=== PATIENT | male | born 1945 | race Caucasian/White ===

== ENCOUNTER 2019-02-09 23:02 | Inpatient (IN) | payer MEDICARE, MEDICAID ==
[~2019-02-09] VITALS: Ht 180.3 cm; Wt 81.6 kg
[~2019-02-09 23:02] MED LIST: NO HOME MEDS
[2019-02-09] MEDS ORDERED: normal saline 1000ml 1,000 ML IV ONE (23:44)
[2019-02-09] MEDS ORDERED: morphine 4 MG/ML inj SYRINge IV ONE (23:45)
[2019-02-09] MEDS ORDERED: ondansetron/PF 4mg/2ml inj IV ONE (23:45)
[2019-02-09] MEDS ORDERED: normal saline 1000ML IV soln IVB ONE (23:45)
--- NOTE | 2019-02-09 23:56 | NUR ---
pt went to radiology
[2019-02-10] VITALS (18 sets, daily range): BP systolic 104–139; BP diastolic 44–75
[2019-02-10 00:35] LABS: BASOPHILS % (AUTO) 0.1 % (0-1); EOSINOPHILS % (AUTO) 0 % (0-6); HEMATOCRIT 38.5 % (42.0-52.0); HEMOGLOBIN 13.2 g/dl (14.0-17.9); LYMPHOCYTES # (AUTO) 0.5 X10'3 (1.1-4.8); LYMPHOCYTES % (AUTO) 4.6 % (21-51); MEAN CORPUSCULAR HEMOGLOBIN 31.8 PG (27.0-31.0); MEAN CORPUSCULAR HGB CONC 34.3 g/dL (33.0-36.5); MEAN CORPUSCULAR VOLUME 92.6 FL (78-98); MEAN PLATELET VOLUME 8.1 FL (7.4-10.4); MONOCYTES # (AUTO) 0.6 X10'3 (0-0.9); MONOCYTES % (AUTO) 4.9 % (2-12); NEUTROPHILS # (AUTO) 10.7 X10'3 (1.8-7.7); NEUTROPHILS % (AUTO) 90.4 % (42-75); PLATELET COUNT 239 X10'3 (140-440); RED BLOOD COUNT 4.16 X10'6 (4.70-6.10); RED CELL DISTRIBUTION WIDTH 13.4 % (11.5-14.5); WHITE BLOOD COUNT 11.9 X10'3 (4.5-11.0)
[2019-02-10 00:42] LABS: ALANINE AMINOTRANSFERASE 20 U/L (12-78); ALBUMIN 2.8 G/DL (3.4-5.0); ALBUMIN/GLOBULIN RATIO 0.7 (1.1-1.5); ALKALINE PHOSPHATASE 75 IU/L (46-116); ANION GAP 9 (8-16); ASPARTATE AMINO TRANSFERASE 20 U/L (10-37); BILIRUBIN,TOTAL 0.8 MG/DL (0.1-1.0); BLOOD UREA NITROGEN 21 MG/DL (7-18); BUN/CREATININE RATIO 19.8 (5.4-32.0); CALCIUM 8.8 MG/DL (8.5-10.1); CHLORIDE 102 MMOL/L (99-107); CREATININE 1.06 MG/DL (0.60-1.10); GLUCOSE 118 MG/DL (70-104); SODIUM 138 MMOL/L (135-145); TOTAL PROTEIN 6.7 G/DL (6.4-8.2); eGFR 68 ML/MIN
[2019-02-10 00:43] LABS: PARTIAL THROMBOPLASTIN TIME 33 SECONDS (22-32)
--- NOTE | 2019-02-10 01:42 | NUR ---
PT ASLEEP, RR 17
[2019-02-10] MEDS ORDERED: ESCI5TAB PO (02:41)
[2019-02-10] MEDS ORDERED: MAG355OR18 PO (02:44)
[2019-02-10] MEDS ORDERED: mag hydrox/Alum hydrox/simeth 30ml oral suspension PO PRN (02:45)
[2019-02-10] MEDS ORDERED: acetaminophen 325mg tablet PO PRN (02:45)
[2019-02-10] MEDS ORDERED: ondansetron/PF 4mg/2ml inj IV PRN ×2 (02:45→07:40)
[2019-02-10] MEDS ORDERED: magnesium hydroxide 30ml (MOM) UD suspension PO PRN ×2 (02:45→06:30)
[2019-02-10] MEDS ORDERED: HYDROcodone/acetaminophen 5mg/325mg tablet PO PRN (02:45)
[2019-02-10] MEDS ORDERED: morphine 2 MG/ML inj. syringe IV PRN (02:45)
[2019-02-10] MEDS ORDERED: METO25TA6 PO (02:47)
[2019-02-10] MEDS ORDERED: SACC250C8 (02:48)
[2019-02-10] MEDS ORDERED: CARB-87 PO (02:49)
[2019-02-10] MEDS ORDERED: ONDA4TAB6 PO (02:50)
[2019-02-10] MEDS ORDERED: ACET-1008 PO (02:50)
[2019-02-10] MEDS: HYDROcodone/acetaminophen 10/325mg tab PO PRN ×3 (03:41→20:38)
[2019-02-10] MEDS: dextrose 5%-1/2 normal saline 1,000 ML IV SCH ×3 (04:32→18:38)
--- NOTE | 2019-02-10 06:12 | NUR ---
report given to yady Flores.
[2019-02-10] MEDS ORDERED: FLO0.4C PO (07:08)
[2019-02-10] MEDS ORDERED: FOLI1TAB16 PO (07:08)
[2019-02-10] MEDS ORDERED: ringers solution, lacted 1,000 ML IV SCH (07:37)
--- NOTE | 2019-02-10 07:38 | NUR ---
Patient to OR. Called [facility] they stated "patient makes own decision and his dementia fluctuates, he is more with it than not."
[2019-02-10] MEDS ORDERED: meperidine/PF 25mg/ml syringe IV PRN ×3 (07:40)
[2019-02-10] MEDS ORDERED: morphine 4 MG/ML inj SYRINge IV PRN ×2 (07:40)
[2019-02-10] MEDS ORDERED: proCHLORperazine 10 MG/2 ml inj IV PRN (07:40)
[2019-02-10] MEDS ORDERED: ceFAZolin 1GM/D5W- ADD-VANTAGE 50 ML IV ONE (07:45)
[2019-02-10] MEDS ORDERED: MIDAZolam 5mg/5ml vial ONE (07:49)
[2019-02-10] MEDS ORDERED: fentaNYL/PF 50MCG/1 ML 2ML syringe ONE (07:49)
[2019-02-10] MEDS ORDERED: vancomycin/NS 1 GM ADD-VANTAGE 250 ML IV ONE (08:05)
[2019-02-10] MEDS ORDERED: ceFAZolin 1000mg inj ONE ×2 (09:07)
--- NOTE | 2019-02-10 09:45 | NUR ---
Received from OR via ORTHO BED, accompanied by Anesthesiologist DR LORENZ and report given by Anesthesiolgist. PT PLACED ON 02 AND MONITOR, S/P RIGHT HIP HEMIARTHROPLASTY, SAB, EASILY AROUSES TO NAME CALLING,PT HAS RIGHT LATERAL HIP DRESSING CDI, GOOD PEDAL PULSES BILAT, BROWN CATH DRAINING CLEAR YELLOW, DENIES ANY PAIN OR NAUSEA WILL CONTINUE TO ASSESS.
--- NOTE | 2019-02-10 10:45 | NUR ---
Report called to receiving nurse. Transferred via ORTHO BED TO ROOM 4024B Belongings . Special Issues communicated to receiving nurse. DENIES ANY PAIN OR NAUSEA. ENCOURAGED TO CDB, PT VERBALIZED UNDERSTANDING.
[2019-02-10] MEDS: ceFAZolin 1GM/D5W- ADD-VANTAGE 50 ML IV SCH (15:31)
[2019-02-10] MEDS ORDERED: HYDROcodone/acetaminophen 10/325mg tab PO PRN (15:35)
--- NOTE | 2019-02-10 18:25 | NUR ---
report rec'd from yady Flores.
--- NOTE | 2019-02-10 18:41 | NUR ---
pt continually pulls oxygen off nose. trimmed nose pieces smaller to help increase compliance. sats 83% on RA. on 3L while in place sats 90%. turned on bed alarm. pt resting w/o distress
--- NOTE | 2019-02-10 18:44 | NUR ---
Problems reprioritized. Patient report given, questions answered & plan of care reviewed with DAVON Simmons.
[2019-02-10] MEDS ORDERED: LORazepam 2 mg/ml vial IV PRN (21:00)
[2019-02-10] MEDS: carbidoba-levodopa 25-100mg tablet PO SCH (22:25)
[2019-02-11] MEDS: ceFAZolin 1GM/D5W- ADD-VANTAGE 50 ML IV SCH (00:16)
[2019-02-11 02:00] VITALS: BP 130/82
--- NOTE | 2019-02-11 03:19 | NUR ---
pt does not keep O2 on, desats into the mid 80s with no O2. currently 91%/3L nc.
[2019-02-11 05:00] VITALS: BP 88/62
[2019-02-11 05:58] LABS: BASOPHILS % (AUTO) 0.4 % (0-1); EOSINOPHILS # (AUTO) 0.2 X10'3 (0-0.9); EOSINOPHILS % (AUTO) 2.2 % (0-6); HEMATOCRIT 31.8 % (42.0-52.0); HEMOGLOBIN 10.9 g/dl (14.0-17.9); LYMPHOCYTES # (AUTO) 0.6 X10'3 (1.1-4.8); LYMPHOCYTES % (AUTO) 7.9 % (21-51); MEAN CORPUSCULAR HEMOGLOBIN 31.9 PG (27.0-31.0); MEAN CORPUSCULAR HGB CONC 34.3 g/dL (33.0-36.5); MEAN CORPUSCULAR VOLUME 93.1 FL (78-98); MONOCYTES # (AUTO) 0.4 X10'3 (0-0.9); MONOCYTES % (AUTO) 5.6 % (2-12); NEUTROPHILS # (AUTO) 6.8 X10'3 (1.8-7.7); NEUTROPHILS % (AUTO) 83.9 % (42-75); PLATELET COUNT 207 X10'3 (140-440); RED BLOOD COUNT 3.42 X10'6 (4.70-6.10); RED CELL DISTRIBUTION WIDTH 13.3 % (11.5-14.5)
--- NOTE | 2019-02-11 06:09 | NUR ---
Report given to yady Flores.
[2019-02-11 06:22] LABS: ANION GAP 8 (8-16); BLOOD UREA NITROGEN 12 MG/DL (7-18); BUN/CREATININE RATIO 13.2 (5.4-32.0); CALCIUM 7.9 MG/DL (8.5-10.1); CHLORIDE 105 MMOL/L (99-107); CREATININE 0.91 MG/DL (0.60-1.10); GLUCOSE 106 MG/DL (70-104); POTASSIUM 3.5 MMOL/L (3.5-5.1); SODIUM 138 MMOL/L (135-145); eGFR 81 ML/MIN
[2019-02-11] MEDS: citalopram 20mg tablet PO SCH ×2 (08:44→10:44)
[2019-02-11] MEDS: folic acid 1mg tablet PO SCH ×2 (08:45→10:43)
[2019-02-11] MEDS: metoprolol tartrate 25mg tablet PO SCH ×3 (08:45→20:11)
[2019-02-11] MEDS: tamsulosin 0.4mg capsule PO SCH ×3 (08:45→20:10)
[2019-02-11] MEDS: morphine 2 MG/ML inj. syringe IV PRN (08:46)
[2019-02-11] MEDS: carbidoba-levodopa 25-100mg tablet PO SCH ×3 (08:48→20:10)
[2019-02-11] MEDS: enoxaparin 40mg/0.4ml syringe SQ SCH (08:49)
[2019-02-11] MEDS: dextrose 5%-1/2 normal saline 1,000 ML IV SCH ×2 (08:52→18:43)
[2019-02-11 10:00] VITALS: BP 134/77
[2019-02-11 14:00] VITALS: BP 151/90
[2019-02-11 18:00] VITALS: BP 143/81
--- NOTE | 2019-02-11 18:28 | NUR ---
Report to Garima Wilde RN
[2019-02-11 22:00] VITALS: BP 129/82
[2019-02-12] MEDS: dextrose 5%-1/2 normal saline 1,000 ML IV SCH (04:43)
[2019-02-12 06:00] VITALS: BP 121/75
--- NOTE | 2019-02-12 06:00 | NUR ---
Patient in room ORTHO 4024. I have received report from Garima Wilde RN and had the opportunity to ask questions and assume patient care.
--- NOTE | 2019-02-12 06:03 | NUR ---
Report given to Niyah MAYS.
[2019-02-12 06:51] LABS: BASOPHILS % (AUTO) 0.4 % (0-1); EOSINOPHILS # (AUTO) 0.2 X10'3 (0-0.9); HEMATOCRIT 32.2 % (42.0-52.0); HEMOGLOBIN 11.2 g/dl (14.0-17.9); LYMPHOCYTES # (AUTO) 0.7 X10'3 (1.1-4.8); LYMPHOCYTES % (AUTO) 8.9 % (21-51); MEAN CORPUSCULAR HEMOGLOBIN 31.6 PG (27.0-31.0); MEAN CORPUSCULAR HGB CONC 34.7 g/dL (33.0-36.5); MEAN CORPUSCULAR VOLUME 91.2 FL (78-98); MONOCYTES # (AUTO) 0.6 X10'3 (0-0.9); MONOCYTES % (AUTO) 7.2 % (2-12); NEUTROPHILS # (AUTO) 6.8 X10'3 (1.8-7.7); NEUTROPHILS % (AUTO) 81.5 % (42-75); PLATELET COUNT 241 X10'3 (140-440); RED BLOOD COUNT 3.53 X10'6 (4.70-6.10); RED CELL DISTRIBUTION WIDTH 13.3 % (11.5-14.5); WHITE BLOOD COUNT 8.4 X10'3 (4.5-11.0)
[2019-02-12 07:01] LABS: ANION GAP 7 (8-16); BLOOD UREA NITROGEN 12 MG/DL (7-18); BUN/CREATININE RATIO 14.5 (5.4-32.0); CALCIUM 8.5 MG/DL (8.5-10.1); CHLORIDE 103 MMOL/L (99-107); CREATININE 0.83 MG/DL (0.60-1.10); GLUCOSE 87 MG/DL (70-104); POTASSIUM 3.5 MMOL/L (3.5-5.1); SODIUM 135 MMOL/L (135-145); TOTAL CARBON DIOXIDE 24.6 MMOL/L (24-32); eGFR > 90 ML/MIN
[2019-02-12] MEDS: tamsulosin 0.4mg capsule PO SCH (07:21)
[2019-02-12] MEDS: citalopram 20mg tablet PO SCH (07:21)
[2019-02-12] MEDS: enoxaparin 40mg/0.4ml syringe SQ SCH (07:21)
[2019-02-12] MEDS: folic acid 1mg tablet PO SCH (07:21)
[2019-02-12] MEDS: carbidoba-levodopa 25-100mg tablet PO SCH (07:21)
[2019-02-12 07:22] VITALS: BP_SYST 121
[2019-02-12] MEDS: metoprolol tartrate 25mg tablet PO SCH (07:22)
[2019-02-12] MEDS: morphine 2 MG/ML inj. syringe IV PRN (10:51)
--- NOTE | 2019-02-12 12:35 | NUR ---
Patient stable for transfer to [facility] today. IV out and all instructions given to recieving nurse at [facility].
== END 2019-02-12 12:35 | DRG 470 ==
LOC: ER 23:03 → ORTHO 4S 02-10 05:40 → CMPBEDREQ 02-10 19:41
PROVIDERS: ADMIT Internal Medicine; ATTEND Orthopaedic Surgery
PROC: 0SRR0J9 Replacement of Right Hip Joint, Femoral Surface with Synthetic Substitute, Cemented, Open Approach (ICD-10-PCS; principal; 2019-02-10 07:40)
DX: S72.011A Unspecified intracapsular fracture of right femur, initial encounter for closed fracture (principal); D62 Acute posthemorrhagic anemia; I10 Essential (primary) hypertension; F03.90 Unspecified dementia, unspecified severity, without behavioral disturbance, psychotic disturbance, mood disturbance, and anxiety; F17.210 Nicotine dependence, cigarettes, uncomplicated; K21.9 Gastro-esophageal reflux disease without esophagitis; W18.39XA Other fall on same level, initial encounter; Y93.01 Activity, walking, marching and hiking; F32.9 Major depressive disorder, single episode, unspecified; Z60.2 Problems related to living alone; G20 Parkinson's disease; Y92.89 Other specified places as the place of occurrence of the external cause; Y99.8 Other external cause status; Z81.1 Family history of alcohol abuse and dependence; Z86.73 Personal history of transient ischemic attack (TIA), and cerebral infarction without residual deficits
CPT/HCPCS: 36415; 71045; 73502; 80048; 80053; 85025; 85610; 85730; 86885; 86900; 86901; 87070; 93005; 96360; 97110; 97161; 97530; 99285; A6222; A6258; A6449; A6455; A7000; C1713; C1758; C1776; G0378; J0690; J1650; J2250; J2270; J3010; J3370; J7120

== ENCOUNTER 2019-03-25 09:34 | Emergency (ER) | payer MEDICARE, MEDICAID ==
[~2019-03-25] VITALS: Ht 180.3 cm; Wt 54.5 kg
[~2019-03-25 09:34] MED LIST changes: +ACET-1008 PO; +CARB-87 PO; +ESCI5TAB PO; +FLO0.4C PO; +FOLI1TAB16 PO; +MAG355OR18 PO; +METO25TA6 PO; -NO HOME MEDS; +ONDA4TAB6 PO; +SACC250C8
[2019-03-25] MEDS ORDERED: normal saline 1000ML IV soln IVB ONE (09:45)
[2019-03-25 10:05] LABS: HEMOGLOBIN 12.7 g/dl (14.0-17.9); RED CELL DISTRIBUTION WIDTH 15.2 % (11.5-14.5); WHITE BLOOD COUNT 1.4 X10'3 (4.5-11.0)
[2019-03-25 10:06] LABS: HEMATOCRIT 38.3 % (42.0-52.0); MEAN CORPUSCULAR HEMOGLOBIN 31.2 PG (27.0-31.0); MEAN CORPUSCULAR HGB CONC 33.2 g/dL (33.0-36.5); MEAN CORPUSCULAR VOLUME 93.9 FL (78-98); MEAN PLATELET VOLUME 7.6 FL (7.4-10.4); PLATELET COUNT 251 X10'3 (140-440); RED BLOOD COUNT 4.08 X10'6 (4.70-6.10)
--- NOTE | 2019-03-25 10:12 | NUR ---
Pt's acharya irrigated with 250 cc/ns. Unable to pull back intially but them acharya began draining dark bloody urine. Will continue to monitor for urine output.
[2019-03-25 10:19] LABS: ALANINE AMINOTRANSFERASE 22 U/L (12-78); ALBUMIN 3.1 G/DL (3.4-5.0); ALBUMIN/GLOBULIN RATIO 0.8 (1.1-1.5); ALKALINE PHOSPHATASE 111 IU/L (46-116); ANION GAP 12 (8-16); ASPARTATE AMINO TRANSFERASE 13 U/L (10-37); BILIRUBIN,TOTAL 0.7 MG/DL (0.1-1.0); BLOOD UREA NITROGEN 32 MG/DL (7-18); BUN/CREATININE RATIO 27.1 (5.4-32.0); CALCIUM 9.1 MG/DL (8.5-10.1); CHLORIDE 106 MMOL/L (99-107); CREATININE 1.18 MG/DL (0.60-1.10); GLUCOSE 97 MG/DL (70-104); POTASSIUM 4.6 MMOL/L (3.5-5.1); SODIUM 143 MMOL/L (135-145); TOTAL CARBON DIOXIDE 24.9 MMOL/L (24-32); TOTAL PROTEIN 6.8 G/DL (6.4-8.2); eGFR 60 ML/MIN
[2019-03-25 10:29] LABS: TOTAL CELLS COUNTED 100
[2019-03-25 10:30] LABS: PLATELET ESTIMATE NORMAL
[2019-03-25 10:36] LABS: CLARITY,URINE BLOODY (Clear); COLOR,URINE RED (Yellow); UA COLLECTION TYPE STRAIGHT CATH
[2019-03-25 10:50] LABS: RBC,URINE TNTC /HPF (0-2); WBC,URINE TNTC /HPF (0-4)
[2019-03-25 10:55] LABS: BACTERIA,URINE 2+ /HPF (Neg); SQUAMOUS EPITHELIAL CELL,UR NONE SEEN /LPF (FEW)
--- NOTE | 2019-03-25 11:01 | NUR ---
[facility] CONSULTED FOR TRANSPORT, 30 MINUTE ETA
[2019-03-25 11:13] VITALS: BP 113/66
--- NOTE | 2019-03-28 09:17 | NUR ---
ATTEMPTED TO CALL PT WITH LAB RESULTS REQUIRING ABX. PT HAS NO PHONE # AND NO EMERGENCY CONTACT INFORMATION. LETTER SENT TO PT'S ADDRESS LISTED.
== END 2019-03-25 12:01 ==
LOC: ER 09:35
DX: R31.0 Gross hematuria (principal); Z46.6 Encounter for fitting and adjustment of urinary device; F03.90 Unspecified dementia, unspecified severity, without behavioral disturbance, psychotic disturbance, mood disturbance, and anxiety; I10 Essential (primary) hypertension; K21.9 Gastro-esophageal reflux disease without esophagitis; F32.9 Major depressive disorder, single episode, unspecified; Z90.89 Acquired absence of other organs; Z98.890 Other specified postprocedural states; Z79.899 Other long term (current) drug therapy
CPT/HCPCS: 36415; 80053; 81001; 85025; 87077; 87088; 87186; 93005; 99284; J7030; P9612

== ENCOUNTER 2021-09-27 20:16 | Emergency (ER) | payer MEDICARE, MEDICAID ==
[~2021-09-27] VITALS: Ht 177.8 cm; Wt 81.0 kg
[~2021-09-27 20:16] MED LIST changes: +CARB-296 PO; -CARB-87 PO; +LOP25T PO; -METO25TA6 PO
[2021-09-27] MEDS ORDERED: LIDOcaine 2% 10ml TOPICAL JELLY (Urojet) MM ONE (20:45)
[2021-09-27] MEDS ORDERED: LIDOcaine 2% 10ml TOPICAL JELLY (Urojet) TP ONE (20:55)
[2021-09-27 22:59] LABS: BASOPHILS % (AUTO) 0.3 % (0-1); EOSINOPHILS % (AUTO) 0.1 % (0-6); HEMATOCRIT 36.8 % (42.0-52.0); HEMOGLOBIN 12.6 g/dl (14.0-17.9); LYMPHOCYTES % (AUTO) 16.9 % (21-51); MEAN CORPUSCULAR HEMOGLOBIN 30.1 PG (27.0-31.0); MEAN CORPUSCULAR HGB CONC 34.1 g/dL (33.0-36.5); MEAN CORPUSCULAR VOLUME 88.3 FL (78-98); MEAN PLATELET VOLUME 7.7 FL (7.4-10.4); MONOCYTES # (AUTO) 0.4 X10'3 (0-0.9); MONOCYTES % (AUTO) 7.1 % (2-12); NEUTROPHILS # (AUTO) 4.4 X10'3 (1.8-7.7); NEUTROPHILS % (AUTO) 75.6 % (42-75); PLATELET COUNT 300 X10'3 (140-440); RED BLOOD COUNT 4.17 X10'6 (4.70-6.10); RED CELL DISTRIBUTION WIDTH 16.3 % (11.5-14.5); WHITE BLOOD COUNT 5.9 X10'3 (4.5-11.0)
[2021-09-27 23:08] LABS: ALANINE AMINOTRANSFERASE 9 U/L (12-78); ALBUMIN 3.2 G/DL (3.4-5.0); ALBUMIN/GLOBULIN RATIO 0.9 (1.1-1.5); ALKALINE PHOSPHATASE 76 IU/L (46-116); ANION GAP 8 (8-16); ASPARTATE AMINO TRANSFERASE 9 U/L (10-37); BILIRUBIN,TOTAL 0.3 MG/DL (0.1-1.0); BLOOD UREA NITROGEN 34 MG/DL (7-18); BUN/CREATININE RATIO 40.5 (5.4-32.0); CALCIUM 9.5 MG/DL (8.5-10.1); CHLORIDE 106 MMOL/L (99-107); CREATININE 0.84 MG/DL (0.60-1.10); GLUCOSE 85 MG/DL (70-104); POTASSIUM 3.9 MMOL/L (3.5-5.1); SODIUM 142 MMOL/L (135-145); TOTAL CARBON DIOXIDE 28.2 MMOL/L (24-32); TOTAL PROTEIN 6.7 G/DL (6.4-8.2); eGFR 89 ML/MIN
--- NOTE | 2021-09-28 01:30 | NUR ---
SEVERAL ATTEMPTS MADE BY RN AND DR PANDYA TO CATHETERIZE PT AND ALL HAVE FAILED. PT PROSTATE INHIBITING PASSAGE.
[2021-09-28 04:16] VITALS: BP 145/86
== END 2021-09-28 04:18 | disposition home or self-care (01) ==
LOC: ER 20:18
DX: U07.1 COVID-19 (principal); R33.9 Retention of urine, unspecified; F03.91 Unspecified dementia, unspecified severity, with behavioral disturbance; G40.909 Epilepsy, unspecified, not intractable, without status epilepticus; I10 Essential (primary) hypertension; K21.9 Gastro-esophageal reflux disease without esophagitis; Z72.89 Other problems related to lifestyle; Z79.899 Other long term (current) drug therapy
CPT/HCPCS: 36415; 76770; 80053; 85025; 99284